=== PATIENT | female | born 1995 | race Caucasian/White ===

== ENCOUNTER 2017-07-21 19:15 | Emergency (ER) | payer OTHER ==
--- NOTE | 2017-07-21 19:43 | C.PDOC ---
History Of Present Illness Patient presents to the ER with a complaint of abdominal pain, nausea, and vomiting that began at approximately 15:00. Denies diarrhea, fever, or chills. Time Seen by Provider: 07/21/17 19:43 Chief Complaint (Nursing): Abdominal Pain History Per: Patient History/Exam Limitations: no limitations Onset/Duration Of Symptoms: Hrs Current Symptoms Are (Timing): Still Present Severity: Mild Pain Scale Rating Of: 4 Location Of Pain/Discomfort: Epigastric Radiation Of Pain To:: None Quality Of Discomfort: Unable To Describe Associated Symptoms: Nausea, Vomiting. denies: Fever, Chills Exacerbating Factors: None Alleviating Factors: None Recent travel outside of the [place]: No Abnormal Vaginal Bleeding: No Past Medical History Reviewed: Historical Data, Nursing Documentation, Vital Signs Vital Signs: Last Vital Signs Temp 97.9 F 07/21/17 22:09 Pulse 63 07/21/17 22:09 Resp 17 07/21/17 22:09 BP 106/68 07/21/17 22:09 Pulse Ox 99 07/21/17 22:49 - Medical History PMH: No Chronic Diseases Surgical History: Appendectomy (2005) - [facility] Procedures OTHER APPENDECTOMY (04/09/06) Family History: States: No Known Family Hx - Social History Hx Alcohol Use: No Hx Substance Use: No - Immunization History Hx Tetanus Toxoid Vaccination: No Hx Influenza Vaccination: No Hx Pneumococcal Vaccination: No Review Of Systems Constitutional: Negative for: Fever, Chills Gastrointestinal: Positive for: Nausea, Vomiting, Abdominal Pain. Negative for : Diarrhea Physical Exam - Physical Exam Appears: Non-toxic, Other (Awake, Alert) Skin: Warm, Dry Oral Mucosa: Moist Chest: Symmetrical, No Tenderness Cardiovascular: Rhythm Regular, No Murmur Respiratory: No Rales, No Rhonchi, No Wheezing Gastrointestinal/Abdominal: Soft, Tenderness (Mid epigastric), No Guarding, No Rebound Neurological/Psych: Oriented x3 ED Course And Treatment - Laboratory Results Result Diagrams: 07/21/17 19:59 07/21/17 19:59 O2 Sat by Pulse Oximetry: 99 (Room air) Pulse Ox Interpretation: Normal - CT Scan/US CT abd/pel Other Rad Studies (CT/US): Read By Radiologist, Radiology Report Reviewed CT/US Interpretation: EXAM: CT Abdomen and Pelvis With Intravenous Contrast. EXAM DATE/TIME: 07/21/2017 8:31 PM. CLINICAL HISTORY: 21 years old, female; Pain; Abdominal pain; Flank; Upper; Additional info: Mid epigastric pain. TECHNIQUE: Axial computed tomography images of the abdomen and pelvis with intravenous contrast. All CT. scans at this facility use one or more dose reduction techniques, viz.: automated exposure control;. ma/kV adjustment per patient size (including targeted exams where dose is matched to indication; i.e. head); or iterative reconstruction technique. Coronal and sagittal reformatted images were created and reviewed. CONTRAST: 100 mL of omnipaque 350 administered intravenously. COMPARISON: There are no prior studies for comparison. FINDINGS: Lower thorax: Heart size is normal. Lung bases are clear. ABDOMEN: Liver: There is fatty infiltration of the liver. Gallbladder and bile ducts: unremarkable. Pancreas: unremarkable. Spleen: unremarkable. Adrenals: unremarkable. Kidneys and ureters: unremarkable. Stomach and bowel: Stomach is almost empty. Rotation is normal. Proximal small bowel is only. minimally distended. There is jejunal fold thickening in the loop approaching the segment of dilatation. There are dilated fluid filled loops in the left midabdomen. There is transition to normal caliber in the. pelvis. Distal and terminal ileum are collapsed the region There are clips at the base of the cecum. Colon is incompletely distended which limits evaluation. There is thickening of a segment of. transverse colon. Appendix: See stomach and bowel. PELVIS: Bladder: unremarkable. Reproductive: Uterus is unremarkable. There is prominence of the adnexa. ABDOMEN and PELVIS: Intraperitoneal space: There is no significant fluid. There is no free air. Bones/joints: There are no acute osseous abnormalities. Soft tissues: unremarkable. Vasculature: Vascular structures are unremarkable. Lymph nodes: unremarkable. IMPRESSION: Mid small bowel obstruction, ileus less likely; focal regions of small and large bowel. wall thickening suggests underlying enterocolitis; fatty liver; probable appendectomy Progress Note: Blood work and urinalysis ordered. Pepcid, zofran, and IV fluids administered. Reevaluation Time: 22:52 Reassessment Condition: Improved Medical Decision Making Medical Decision Making: Upon provider reevaluation patient is feeling better, is medically stable, and requires no further treatment in the ED at this time. Patient will be discharged home with Rx for flagyl and zofran . Counseling was provided and all questions were answered regarding diagnosis and need for follow up with dr valdes. There is agreement to discharge plan. Return if symptoms persist or worsen. Disposition Counseled Patient/Family Regarding: Studies Performed, Diagnosis, Need For Followup, Rx Given - Disposition Referrals: Casey Valdes MD [Staff Provider] - Disposition: HOME/ ROUTINE Disposition Time: 19:43 Condition: FAIR Additional Instructions: Please return if symptoms recur Prescriptions: Metronidazole [Flagyl] 500 mg PO TID #21 tablet Ondansetron ODT [Zofran ODT] 1 odt PO BID PRN #6 odt PRN Reason: Nausea/Vomiting Instructions: Abdominal Pain (ED) Forms: [facility] (Italian) - Clinical Impression Clinical Impression: Abdominal pain, Enterocolitis - Scribe Statement The provider has reviewed the documentation as recorded by the Scribstewart Obando All medical record entries made by the Frankibstewart were at my direction and personally dictated by me. I have reviewed the chart and agree that the record accurately reflects my personal performance of the history, physical exam, medical decision making, and the department course for this patient. I have also personally directed, reviewed, and agree with the discharge instructions and disposition.
[2017-07-21] MEDS ORDERED: Sodium Chloride 0.9% 1,000 ML IV ONE (19:44)
[2017-07-21 20:07] LABS: BASO # 0.1 K/uL (0.0-0.2); BASO % 0.9 % (0.0-2.0); EOS % 0.4 % (0.0-4.0); HEMATOCRIT 40.2 % (34.0-47.0); LYMPH # 1.1 K/uL (1.0-4.3); LYMPH % 8.6 % (20.0-40.0); MEAN CORPUSCULAR HEMOGLOBIN 28.8 pg (27.0-31.0); MEAN CORPUSCULAR HGB CONC 33.1 g/dL (33.0-37.0); MEAN PLATELET VOLUME 8.5 fL (7.2-11.7); MONO # 0.6 K/uL (0.0-0.8); MONO % 4.9 % (0.0-10.0); PLATELET COUNT 221 K/uL (130-400); RED CELL DISTRIBUTION WIDTH 12.8 % (11.5-14.5); WHITE BLOOD COUNT 12.4 K/uL (4.8-10.8)
[2017-07-21] MEDS ORDERED: Sodium Chloride 0.9% 1,000 ML ONE (20:09)
[2017-07-21 20:15] LABS: CHLORIDE 102 mmol/L (98-107)
[2017-07-21 20:16] LABS: POTASSIUM 3.8 mmol/L (3.6-5.2); RBC URINE 2506 /hpf (0-3); SODIUM 140 mmol/L (132-148); URINE BACTERIA OCC (<OCC); URINE BILIRUBIN NEGATIVE (NEGATIVE); URINE BLOOD 3+ (NEGATIVE); URINE COLOR Yellow (YELLOW); URINE GLUCOSE (UA) NORMAL (Normal); URINE KETONE 1+ mg/dL (NEGATIVE); URINE PROTEIN 1+ mg/dL (NEGATIVE); URINE UROBILINOGEN NORMAL mg/dL (0.2-1.0); WBC URINE 9 /hpf (0-5)
[2017-07-21 20:17] LABS: URINE LEUKOCYTE ESTERASE 1+ Leu/uL (Negative)
[2017-07-21 20:18] LABS: ALB/GLOB RATIO 1.1 (1.0-2.1); ALKALINE PHOSPHATASE 84 U/L (38-126); AST/SGOT 18 U/L (14-36); BILIRUBIN,TOTAL 0.7 mg/dL (0.2-1.3); CARBON DIOXIDE 25 mmol/L (22-30); GFR AFRICAN-AMERICAN > 60; TOTAL PROTEIN 8.1 g/dL (6.3-8.3)
[2017-07-21 20:19] LABS: ALT/SGPT 27 U/L (9-52); BLOOD UREA NITROGEN 13 mg/dL (7-17); CALCIUM 9.3 mg/dl (8.6-10.4); GLUCOSE,RANDOM 101 mg/dL (65-105)
[2017-07-21 20:29] LABS: BASOPHIL 1 % (0-2); NEUTROPHIL 82 % (50-75); TOTAL CELLS COUNTED 100
[2017-07-21 20:31] LABS: LARGE PLATELETS PRESENT
[2017-07-21] MEDS ORDERED: Iohexol 350mg/ml 100 ML ONE (21:29)
[2017-07-21 22:09] VITALS: RESP 17
--- NOTE | 2017-07-21 22:44 | CT ---
EXAM: CT Abdomen and Pelvis With Intravenous Contrast EXAM DATE/TIME: 07/21/2017 8:31 PM CLINICAL HISTORY: 21 years old, female; Pain; Abdominal pain; Flank; Upper; Additional info: Mid epigastric pain TECHNIQUE: Axial computed tomography images of the abdomen and pelvis with intravenous contrast. All CT scans at this facility use one or more dose reduction techniques, viz.: automated exposure control; ma/kV adjustment per patient size (including targeted exams where dose is matched to indication; i.e. head); or iterative reconstruction technique. Coronal and sagittal reformatted images were created and reviewed. CONTRAST: 100 mL of omnipaque 350 administered intravenously. COMPARISON: There are no prior studies for comparison. FINDINGS: Lower thorax: Heart size is normal. Lung bases are clear ABDOMEN: Liver: There is fatty infiltration of the liver. Gallbladder and bile ducts: unremarkable Pancreas: unremarkable Spleen: unremarkable Adrenals: unremarkable Kidneys and ureters: unremarkable Stomach and bowel: Stomach is almost empty. Rotation is normal. Proximal small bowel is only minimally distended. There is jejunal fold thickening in the loop approaching the segment of dilatation. There are dilated fluid filled loops in the left midabdomen. There is transition to normal caliber in the pelvis. Distal and terminal ileum are collapsed the region There are clips at the base of the cecum. Colon is incompletely distended which limits evaluation. There is thickening of a segment of transverse colon. Appendix: See stomach and bowel PELVIS: Bladder: unremarkable Reproductive: Uterus is unremarkable. There is prominence of the adnexa. ABDOMEN and PELVIS: Intraperitoneal space: There is no significant fluid. There is no free air. Bones/joints: There are no acute osseous abnormalities Soft tissues: unremarkable Vasculature: Vascular structures are unremarkable. Lymph nodes: unremarkable IMPRESSION: Mid small bowel obstruction, ileus less likely; focal regions of small and large bowel wall thickening suggests underlying enterocolitis; fatty liver; probable appendectomy
[2017-07-21 23:08] VITALS: BP 107/68; PULSE 65; TEMP 98.1; O2SAT 98
== END 2017-07-21 23:08 | disposition home or self-care (01) ==
LOC: C.ER 19:15
DX: K52.9 Noninfective gastroenteritis and colitis, unspecified (principal)
CPT/HCPCS: 74177; 80053; 81001; 83690; 84703; 85025; 96361; 96374; 96375; 99285; J2405; J7040; Q9967